=== PATIENT | female | born 1970 | race Caucasian/White ===

== ENCOUNTER → 2024-04-24 | Outpatient (CLI) | payer OTHER ==
[~2024-04-24] MED LIST: ALBU90OI61 INH; ALPR.5 PO; AMOX875 PO; CEPH500 PO; CRUTCH4 USE; Cleocin HCl300 MG PO; ESCI20 PO; HYDACE5 PO; LISHYD2025 PO; NAPR500 PO; Norco 5-325 Ta1 EACH PO; OXYACE5T PO; QUET100 PO; SERT50 PO; SULTRIDS PO; TRAZ50 PO
[2024-05-01 10:03] LABS: HPV HIGH RISK BY TMA Not Detected; HPV SOURCE Cervical
== END ==
LOC: LAB SHORT 13:02 → LAB 13:02
PROVIDERS: Family Medicine
DX: Z01.419 Encounter for gynecological examination (general) (routine) without abnormal findings (principal)
CPT/HCPCS: 87624; G0123